=== PATIENT | female | born 1955 | race Caucasian/White ===

== ENCOUNTER 2016-10-10 09:06 | Inpatient (IN) | payer OTHER ==
[2016-10-10] MEDS ORDERED: ACETAMINOPHEN TAB 500 MG TAB PO STA (09:08)
[2016-10-10] MEDS ORDERED: IBUPROFEN 600 MG TAB PO STA (09:08)
[2016-10-10] MEDS ORDERED: SODIUM CHLORIDE 0.9% 500 ML IV STA (09:08)
[2016-10-10] MEDS ORDERED: SODIUM CHLORIDE 0.9% 1,000 ML IV STA (09:08)
[2016-10-10] MEDS ORDERED: SODIUM CHLORIDE 0.9% 1,000 ML IV ONE (09:10)
--- NOTE | 2016-10-10 09:10 | ED ---
General Adult HPI - General Stated complaint: Abd Pain Time Seen by Provider: 10/10/16 09:08 Source: RN notes reviewed, old records reviewed - History of Present Illness Initial comments: This is a 61-year-old female here for evaluation. Patient presents today for evaluation of fever. Patient's transfer patient excepted from [facility] as a postop patient in a postop fever. Patient's medical records were transferred with patient. - Related Data Allergies Allergy/AdvReac Type Severity Reaction Status Date / Time acetaminophen [From [place]] AdvReac Itching Verified 10/10/16 09:13 hydrocodone [From [place]] AdvReac Itching Verified 10/10/16 09:13 Review of Systems ROS Statement: Those systems with pertinent positive or pertinent negative responses have been documented in the HPI. ROS Other: All systems not noted in ROS Statement are negative. General Exam General appearance: alert, in no apparent distress Head exam: Present: atraumatic, normocephalic, normal inspection Eye exam: Present: normal appearance, PERRL, EOMI. Absent: scleral icterus, conjunctival injection, periorbital swelling ENT exam: Present: normal exam, mucous membranes moist Neck exam: Present: normal inspection. Absent: tenderness, meningismus, lymphadenopathy Respiratory exam: Present: normal lung sounds bilaterally. Absent: respiratory distress, wheezes, rales, rhonchi, stridor Cardiovascular Exam: Present: regular rate, normal rhythm, normal heart sounds. Absent: systolic murmur, diastolic murmur, rubs, gallop, clicks GI/Abdominal exam: Present: soft, normal bowel sounds. Absent: distended, tenderness, guarding, rebound, rigid Extremities exam: Present: normal inspection, full ROM, normal capillary refill. Absent: tenderness, pedal edema, joint swelling, calf tenderness Back exam: Present: normal inspection Neurological exam: Present: alert, oriented X3, CN II-XII intact Psychiatric exam: Present: normal affect, normal mood Skin exam: Present: warm, dry, intact, normal color. Absent: rash Course Vital Signs 10/10/16 10/10/16 10/10/16 09:09 10:28 10:36 Temperature 98.1 F Pulse Rate 70 66 66 Respiratory 18 Rate Blood Pressure 144/92 O2 Sat by Pulse 95 Oximetry - Reevaluation(s) Reevaluation #1: 10/10/16 09:10 Transfer paperwork is thoroughly reviewed Reevaluation #2: 10/10/16 10:40 Symptoms are well controlled at this time EKG Findings - EKG Comments: EKG Findings:: EKG shows normal sinus rhythm of 63, DC 142, QRS 104, QTC 440 Medical Decision Making - Medical Decision Making 61 female here for evaluation of fever postop fever - Lab Data Result diagrams: 10/10/16 09:23 10/10/16 09:23 - Radiology Data Radiology results: report reviewed (Outpatient CT of abdomen and pelvis shows no postop abscess, normal postop changes), image reviewed (CT a chest negative for PE, no pneumonia) Disposition Clinical Impression: Postoperative fever Disposition: ADMITTED IP TO THIS HOSP Condition: Fair
[2016-10-10] MEDS ORDERED: PIPERACILLIN-TAZOBACTAM 3.375 GM in DEXTROSE/WATER 1 50ML.BAG IVPB STA (09:19)
[2016-10-10] MEDS ORDERED: RX INFO: IV CONTRAST WAS GIVEN 1 EACH MISC MISCELLANE PRN (09:19)
[2016-10-10] MEDS ORDERED: IPRATROPIUM-ALBUTEROL 3 ML NEB INHALATION PRN (09:19)
[2016-10-10] MEDS ORDERED: ACETAMINOPHEN IV (For NPO) 1,000 MG in EMPTY BAG 1 BAG IVPB STA (09:19)
[2016-10-10] MEDS ORDERED: IPRATROPIUM-ALBUTEROL 3 ML NEB INHALATION STA (09:19)
[2016-10-10] MEDS ORDERED: MORPHINE SULFATE 4 MG/ML SYRINGE IVP STA (09:20)
[2016-10-10] MEDS ORDERED: MORPHINE SULFATE 4 MG/ML SYRINGE IVP PRN (09:20)
[2016-10-10] MEDS ORDERED: ONDANSETRON 4 MG/2 ML VIAL IVP PRN (09:20)
[2016-10-10] MEDS ORDERED: ACETAMINOPHEN TAB 325 MG TAB PO PRN (09:20)
[2016-10-10] MEDS ORDERED: ONDANSETRON 4 MG/2 ML VIAL IVP STA (09:20)
[2016-10-10 09:50] LABS: Basophils % (A) 0 %; CH 29.7; CHCM 33.5; Eosinophils # (A) 0.1 k/uL (0-0.7); Eosinophils % (A) 1 %; HCT 38.9 % (34.0-46.0); HGB 13.3 gm/dL (11.4-16.0); Luc # (Auto) 0.29; Luc % (Auto) 2; Lymphocytes # (A) 1.2 k/uL (1.0-4.8); Lymphocytes % (A) 9 %; MCH 30.6 pg (25.0-35.0); MCHC 34.3 g/dL (31.0-37.0); MCV 89.2 fL (80.0-100.0); Mean Platelet Volume 8.1; Monocytes # (A) 1.4 k/uL (0-1.0); Monocytes % (A) 11 %; Neutrophils # (A) 10.5 k/uL (1.3-7.7); Neutrophils % (A) 78 %; RBC 4.36 m/uL (3.80-5.40); WBC 13.6 k/uL (3.8-10.6); WBC (Perox) 14.16
[2016-10-10 09:59] LABS: ALT 81 U/L (9-52); AST 57 U/L (14-36); Alkaline Phosphatase 170 U/L (38-126); Anion Gap 7 mmol/L; Blood Urea Nitrogen 10 mg/dL (7-17); Calcium 8.5 mg/dL (8.4-10.2); Carbon Dioxide 22 mmol/L (22-30); Chloride 104 mmol/L (98-107); Glucose 89 mg/dL (74-99); Magnesium 1.6 mg/dL (1.6-2.3); Non-African American GFR(MDRD) >60 (>60 ml/min/1.73 sqM); Phosphorous 3.6 mg/dL (2.5-4.5); Sodium 133 mmol/L (137-145); Total Bilirubin 2.1 mg/dL (0.2-1.3); Total Protein 5.7 g/dL (6.3-8.2)
[2016-10-10 10:00] LABS: INR 1.1 (<1.2); Partial Thromboplastin Time 24.3 sec (22.0-30.0); Prothrombin Time 10.7 sec (9.0-12.0)
[2016-10-10 10:18] LABS: Creatine Kinase 69 U/L (30-135)
[2016-10-10 10:31] LABS: Troponin I <0.012 ng/mL (0.000-0.034)
--- NOTE | 2016-10-10 10:34 | CT ---
EXAMINATION TYPE: CT angio chest DATE OF EXAM: 10/10/2016 COMPARISON: NONE HISTORY: SOB, recent cholecystectomy CT DLP: 424.5 mGycm CONTRAST: CT chest with contrast and 3D reconstruction with MIP imaging is performed with IV Contrast, patient injected with 65 mL of Omnipaque 350. Contrast-enhanced CT of the chest was performed through the course of the pulmonary arteries with too g and mediastinal window settings submitted. 3D reconstruction with MIP imaging was also performed. PULMONARY ARTERIES: The pulmonary arteries and their major tributaries are patent. I do not see yolanda dence for sizable filling defect to suggest pulmonary embolic process. LUNGS: There is evidence of basilar atelectasis right greater than left. No evidence for atelectasis. No pulmonary nodule or mass is detected. No pleural effusion. MEDIASTINUM: Thoracic aorta is of normal caliber . The heart is not enlarged. No evidence for media stinal mass. No mediastinal lymph nodes greater than 1cm. HILAR STRUCTURES: No evidence for mass. No hilar lymph nodes greater than 1 cm. UPPER ABDOMEN: No significant abnormality is seen. IMPRESSION: 1. No evidence for Pulmonary embolism at this time. Basilar atelectasis.
[2016-10-10 10:49] LABS: Appearance,Urine Clear (Clear); Bilirubin,Urine Negative (Negative); Glucose,Urine (UA) Negative (Negative); Ketones,Urine Negative (Negative); Leukocyte Esterase,Urine Negative (Negative); Nitrite,Urine Negative (Negative); PH, Urine 5.5 (5.0-8.0); Protein,Urine Negative (Negative); Specific Gravity,Urine 1.017 (1.001-1.035); UA Billing (MACRO vs. MICRO) CHEM; Urobilinogen,Urine <2.0 mg/dL (<2.0)
--- NOTE | 2016-10-10 14:21 | P.HPIM ---
History of Present Illness 61-year-old female came in because of the fever patient checked her temperature at home she is found to have temperature of around 101 f last night patient is postoperative day 4. Patient was transferred here from [facility] was subsequently admitted here. Patient presently denied any fever doesn't didn't have any fever since since admission patient was started on Zosyn. Patient had a CT angios of the chest which ruled out pulmonary embolism. It did show some atelectasis which which probably is responsible for her fever, although there is very limited a bronchogram because of which will discharged on levofloxacin for 5 days. Patient denied any dysuria UA is essentially negative. Review of Systems REVIEW OF SYSTEMS: CONSTITUTIONAL: no malaise, no fatigue. HEENT: No recent visual problems or hearing problems. Denied any sore throat. CARDIOVASCULAR: No chest pain, orthopnea, PND, no palpitations, no syncope. PULMONARY: No shortness of breath, no cough, no hemoptysis. GASTROINTESTINAL: No diarrhea, no nausea, no vomiting, no abdominal pain. Normoactive bowel sounds. NEUROLOGICAL: No headaches, no weakness, no numbness. HEMATOLOGICAL: Denies any bleeding or petechiae. GENITOURINARY: Denies any burning micturition, frequency, or urgency. MUSCULOSKELETAL/RHEUMATOLOGICAL: Denies any joint pain, swelling, or any muscle pain. ENDOCRINE: Denies any polyuria or polydipsia. Past Medical History Past Medical History: Hyperlipidemia, Hypertension History of Any Multi-Drug Resistant Organisms: None Reported Past Surgical History: Cholecystectomy, Hysterectomy, Tubal Ligation Past Psychological History: No Psychological Hx Reported Smoking Status: Current every day smoker Past Alcohol Use History: None Reported Past Drug Use History: None Reported - Past Family History Mother Family Medical History: Chest Pain / Angina, Coronary Artery Disease (CAD), Diabetes Mellitus Medications and Allergies Home Medications Medication Instructions Recorded Confirmed Type Aspirin [Adult Low Dose Aspirin EC] 81 mg PO DAILY 10/10/16 10/10/16 History Lisinopril [Zestril] 40 mg PO DAILY 10/10/16 10/10/16 History Allergies Allergy/AdvReac Type Severity Reaction Status Date / Time acetaminophen [From [place]] AdvReac Itching Verified 10/10/16 12:58 hydrocodone [From [place]] AdvReac Itching Verified 10/10/16 12:58 Physical Exam Vitals: Vital Signs Temp Pulse Pulse Resp BP BP Pulse Ox 10/10/16 13:51 68 19 95 10/10/16 13:04 98.8 F 64 19 115/58 96 10/10/16 10:56 97.4 F L 69 18 108/59 96 10/10/16 10:44 97.5 F L 66 15 139/74 98 10/10/16 10:36 66 10/10/16 10:28 66 10/10/16 09:09 98.1 F 70 18 144/92 95 Intake and Output 10/09/16 10/10/16 10/10/16 22:59 06:59 14:59 Other: # Bowel Movements 1 Weight 113.398 kg Patient Weight 10/11/16 06:59 Weight 113.398 kg PHYSICAL EXAMINATION: GENERAL: The patient is alert and oriented x3, not in any acute distress. Well developed, well nourished. HEENT: Pupils are round and equally reacting to light. EOMI. No scleral icterus. No conjunctival pallor. Normocephalic, atraumatic. No pharyngeal erythema. No thyromegaly. CARDIOVASCULAR: S1 and S2 present. No murmurs, rubs, or gallops. PULMONARY: Chest is clear to auscultation, no wheezing or crackles. ABDOMEN: Soft, nontender, nondistended, normoactive bowel sounds. No palpable organomegaly. MUSCULOSKELETAL: No joint swelling or deformity. EXTREMITIES: No cyanosis, clubbing, or pedal edema. NEUROLOGICAL: Gross neurological examination did not reveal any focal deficits. SKIN: No rashes. Results CBC & Chem 7: 10/10/16 09:23 10/10/16 09:23 Labs: Abnormal Lab Results - Last 24 Hours (Table) 10/10/16 10/10/16 Range/Units 09:23 09:23 WBC 13.6 H (3.8-10.6) k/uL Neutrophils # 10.5 H (1.3-7.7) k/uL Monocytes # 1.4 H (0-1.0) k/uL Sodium 133 L (137-145) mmol/L Total Bilirubin 2.1 H (0.2-1.3) mg/dL AST 57 H (14-36) U/L ALT 81 H (9-52) U/L Alkaline Phosphatase 170 H (38-126) U/L Total Protein 5.7 L (6.3-8.2) g/dL Albumin 3.1 L (3.5-5.0) g/dL Thrombosis Risk Factor Assmnt - Choose All That Apply Each Factor Represents 1 point: Age 41-60 years, Obesity (BMI >25) Each Risk Factor Represents 2 Points: Laparoscopic surgery Thrombosis Risk Factor Assessment Total Risk Factor Score: 4 Thrombosis Risk Factor Assessment Level: Moderate Risk Assessment and Plan Plan: 1 postoperative fever: Probably secondary to atelectasis mostly there is there may be early stages of pneumonia because of which I'm discharging her and levofloxacin. I did review the CT of the chest. Surgical site appears to be clean without any infection. Patient will be counseled regarding incentive spirometry #2 hypertension patient is on lisinopril which she can continue. #3 recent cholecystectomy: We will opt to nondistended abdomen to make sure there is no biliary leak. #4 hyperlipidemia
--- NOTE | 2016-10-10 14:22 | P.DS ---
Providers Date of admission: 10/10/16 09:10 Attending physician: Pradeep Cordero Primary care physician: Eliezer Sheets Hospital Course: Please refer to HPI Patient Condition at Discharge: Fair Plan - Discharge Summary New Discharge Prescriptions: New Levofloxacin [Levaquin] 500 mg PO DAILY #5 tab No Action Lisinopril [Zestril] 40 mg PO DAILY Aspirin [Adult Low Dose Aspirin EC] 81 mg PO DAILY Discharge Medication List Aspirin [Adult Low Dose Aspirin EC] 81 mg PO DAILY 10/10/16 [History] Levofloxacin [Levaquin] 500 mg PO DAILY #5 tab 10/10/16 [Rx] Lisinopril [Zestril] 40 mg PO DAILY 10/10/16 [History] Follow up Appointment(s)/Referral(s): Kathie Thapa FNPBC [REFERRING] - 1-2 days Discharge Disposition: HOME SELF-CARE
--- NOTE | 2016-10-10 15:13 | US ---
EXAMINATION TYPE: US abdomen complete DATE OF EXAM: 10/10/2016 COMPARISON: NONE CLINICAL HISTORY: Post cholecystectomy pain EXAM MEASUREMENTS: Liver Length: 18.6 cm Gallbladder Wall: Surgically absent CBD: 0.3 cm Right Kidney: 15.6 x 4.9 x 5.2 cm Limited due to pt difficulty holding breath. Pancreas: wnl Liver: wnl Gallbladder: Surgically absent Evidence for sonographic Shaver's sign: no CBD: wnl Right Kidney: wnl The liver is homogenous. Common bile duct is unremarkable. The visualized portions of the pancreas are homogenous. Right kidneys is free of hydronephrosis. No renal lesions are seen. IMPRESSION: Negative right upper quadrant abdominal sonogram. Cholecystectomy noted. No dilated ducts.
[2016-10-10] MEDS ORDERED: PIPERACILLIN-TAZOBACTAM 3.375 GM in DEXTROSE/WATER 1 50ML.BAG IVPB SCH (16:00)
[2016-10-10 18:26] VITALS: BP 135/55; PULSE 73; RESP 20; TEMP 98.1
[2016-10-11] MEDS ORDERED: FAMOTIDINE 20 MG/2 ML VIAL IV SCH (09:00)
[2016-10-11] MEDS ORDERED: ENOXAPARIN 40 MG/0.4 ML SYRINGE SQ SCH (09:00)
== END 2016-10-10 17:55 | disposition home or self-care (01) | DRG 864 ==
LOC: EC 09:06 → 6PED 09:10
PROVIDERS: ADMIT Internal Medicine; ATTEND Internal Medicine
DX: R50.82 Postprocedural fever (principal); I10 Essential (primary) hypertension; J98.11 Atelectasis; E78.5 Hyperlipidemia, unspecified; Z90.49 Acquired absence of other specified parts of digestive tract; F17.200 Nicotine dependence, unspecified, uncomplicated; Z79.82 Long term (current) use of aspirin; Z79.899 Other long term (current) drug therapy
CPT/HCPCS: 71275; 76705; 80053; 81003; 82550; 82553; 83605; 83735; 84100; 84484; 85025; 85610; 85730; 87040; 87086; 93005; 96365; 96375; 99285

== ENCOUNTER 2016-10-12 14:27 | Inpatient (IN) | payer OTHER ==
[2016-10-12] MEDS ORDERED: NALOXONE 0.4 MG/ML 1 ML VIAL IV PRN (14:58)
--- NOTE | 2016-10-12 14:58 | ED ---
General Adult HPI - General Chief complaint: Nausea/Vomiting/Diarrhea Stated complaint: N & V Time Seen by Provider: 10/12/16 14:37 Source: patient, EMS Mode of arrival: EMS Limitations: no limitations - History of Present Illness Initial comments: This a 61-year-old female presents emergency department EMS transfer from [place]. Patient had cholecystectomy by Dr. Maravilla. Patient was admitted to days ago here in emergency department transferred from [place] for infection. Patient states she was discharged on antibiotics went home started about the following day. She's had increase abdominal pain. Patient was found to have ileus versus early partial bowel structure on CT. Patient states she was given pain medication Levaquin and Zofran. States she feels improved at this time. Patient was transferred here for further care. - Related Data Home Medications Medication Instructions Recorded Confirmed Aspirin [Adult Low Dose Aspirin EC] 81 mg PO DAILY 10/10/16 10/10/16 Lisinopril [Zestril] 40 mg PO DAILY 10/10/16 10/10/16 Previous Rx's Medication Instructions Recorded Levofloxacin [Levaquin] 500 mg PO DAILY #5 tab 10/10/16 Allergies Allergy/AdvReac Type Severity Reaction Status Date / Time acetaminophen [From [place]] AdvReac Itching Verified 10/10/16 12:58 hydrocodone [From [place]] AdvReac Itching Verified 10/10/16 12:58 Review of Systems ROS Statement: Those systems with pertinent positive or pertinent negative responses have been documented in the HPI. ROS Other: All systems not noted in ROS Statement are negative. Past Medical History Past Medical History: Hyperlipidemia, Hypertension History of Any Multi-Drug Resistant Organisms: None Reported Past Surgical History: Cholecystectomy, Hysterectomy, Tubal Ligation Past Psychological History: No Psychological Hx Reported Smoking Status: Current every day smoker Past Alcohol Use History: None Reported Past Drug Use History: None Reported - Past Family History Mother Family Medical History: Chest Pain / Angina, Coronary Artery Disease (CAD), Diabetes Mellitus General Exam General appearance: alert, in no apparent distress Respiratory exam: Present: normal lung sounds bilaterally. Absent: respiratory distress, wheezes, rales, rhonchi, stridor Cardiovascular Exam: Present: regular rate, normal rhythm, normal heart sounds. Absent: systolic murmur, diastolic murmur, rubs, gallop, clicks GI/Abdominal exam: Present: soft, tenderness (Mild to moderate), normal bowel sounds. Absent: distended, guarding, rebound, rigid Back exam: Absent: CVA tenderness (R), CVA tenderness (L) Course Vital Signs 10/12/16 14:31 Temperature 97.8 F Pulse Rate 66 Respiratory 18 Rate Blood Pressure 140/67 O2 Sat by Pulse 96 Oximetry Disposition Clinical Impression: Ileus, postoperative, Nausea & vomiting Disposition: ADMITTED IP TO THIS [facility] Condition: Good Referrals: None,Stated [Primary Care Provider] - 1-2 days
[2016-10-12] MEDS: SODIUM CHLORIDE 0.9% 1,000 ML IV SCH (15:11)
[2016-10-12] MEDS: ONDANSETRON 4 MG/2 ML VIAL IVP PRN (17:31)
[2016-10-12] MEDS: MORPHINE SULFATE 4 MG/ML SYRINGE IV PRN ×2 (17:31→20:55)
[2016-10-12] MEDS ORDERED: MAG HYDROX/AL HYDROX/SIMETH 30 ML CUP PO PRN ×2 (19:31→20:07)
[2016-10-12] MEDS ORDERED: LEVOFLOXACIN 500 MG TAB PO SCH (21:00)
[2016-10-13] MEDS: SODIUM CHLORIDE 0.9% 1,000 ML IV SCH ×2 (06:24→16:03)
[2016-10-13] MEDS ORDERED: LISINOPRIL 20 MG TAB PO SCH (09:00)
[2016-10-13] MEDS: MORPHINE SULFATE 4 MG/ML SYRINGE IV PRN (09:31)
[2016-10-13] MEDS: ONDANSETRON 4 MG/2 ML VIAL IVP PRN (09:37)
[2016-10-13 13:43] LABS: Basophils % (A) 0 %; CH 29.2; CHCM 32.9; Eosinophils # (A) 0.3 k/uL (0-0.7); Eosinophils % (A) 3 %; HCT 40.9 % (34.0-46.0); HDW 2.68; HGB 13.6 gm/dL (11.4-16.0); Luc # (Auto) 0.27; Luc % (Auto) 3; Lymphocytes # (A) 1.4 k/uL (1.0-4.8); Lymphocytes % (A) 14 %; MCH 29.7 pg (25.0-35.0); MCHC 33.3 g/dL (31.0-37.0); MCV 89.1 fL (80.0-100.0); Mean Platelet Volume 7.7; Monocytes # (A) 0.8 k/uL (0-1.0); Monocytes % (A) 9 %; Neutrophils # (A) 6.8 k/uL (1.3-7.7); Neutrophils % (A) 71 %; RBC 4.58 m/uL (3.80-5.40); RDW 13.3 % (11.5-15.5); WBC 9.6 k/uL (3.8-10.6); WBC (Perox) 9.96
--- NOTE | 2016-10-13 13:52 | XR ---
EXAMINATION TYPE: XR abdomen 2V DATE OF EXAM: 10/13/2016 HISTORY: Pain. Technique: 3 views of the abdomen are submitted. Comparison: None. Findings: There is no convincing evidence of pneumoperitoneum. Distention of small and large bowel with scattered air-fluid levels suggest ileus. Cholecystectomy cl ips are in place. No mass effects are noted. No renal calcifications are identified. IMPRESSION: 1. Distention of small and large bowel with scattered air-fluid levels suggest ileus.
[2016-10-13] MEDS ORDERED: KETOROLAC 30 MG/ML 1 ML VIAL IVP PRN (14:06)
[2016-10-13 14:09] LABS: ALT 50 U/L (9-52); AST 21 U/L (14-36); Alkaline Phosphatase 129 U/L (38-126); Anion Gap 8 mmol/L; Blood Urea Nitrogen 14 mg/dL (7-17); Calcium 8.5 mg/dL (8.4-10.2); Carbon Dioxide 24 mmol/L (22-30); Chloride 108 mmol/L (98-107); Glucose 74 mg/dL (74-99); Non-African American GFR(MDRD) >60 (>60 ml/min/1.73 sqM); Potassium 4.1 mmol/L (3.5-5.1); Sodium 140 mmol/L (137-145); Total Bilirubin 0.7 mg/dL (0.2-1.3)
--- NOTE | 2016-10-13 14:11 | P.HPIM ---
History of Present Illness 61-year-old female sent in from [facility] for possible ileus. Patient was recently discharged from my service. After she was admitted for postoperative fever. Which was considered secondary to atelectasis at that time patient was discharged on levofloxacin for possible early stages of pneumonia. Patient started having nausea vomiting the following day along with a few episodes of diarrhea. Patient did not have any diarrhea here. Patient is still with nauseous and patient bowel sounds are sluggish. Patient's abdomen is distended nontender. Patient appears to have ileus. Patient is not on any narcotic medications at home. Patient is on morphine here which will risk and urine patient was started on ketorolac. Patient denied any fever, chills, dysuria. Patient has minimal diffuse abdominal pain. Patient will be started on proton pump inhibitor and ketorolac instead. And will place an NG tube and see if it drains anything. Patient is on IV fluids at 100 mL/h which will be continued. I'm repeating the chest x-ray and a CBC CMP here. Her electrolytes appear to be within normal limits at the other facility. Patient appears to have postoperative ileus. Surgery was consult and here. It was noted by the surgeon at the other facility that patient had adhesions . Review of Systems REVIEW OF SYSTEMS: CONSTITUTIONAL: No fever, no malaise, no fatigue. HEENT: No recent visual problems or hearing problems. Denied any sore throat. CARDIOVASCULAR: No chest pain, orthopnea, PND, no palpitations, no syncope. PULMONARY: No shortness of breath, no cough, no hemoptysis. GASTROINTESTINAL: As mentioned in HPI NEUROLOGICAL: No headaches, no weakness, no numbness. HEMATOLOGICAL: Denies any bleeding or petechiae. GENITOURINARY: Denies any burning micturition, frequency, or urgency. MUSCULOSKELETAL/RHEUMATOLOGICAL: Denies any joint pain, swelling, or any muscle pain. ENDOCRINE: Denies any polyuria or polydipsia. The rest of the 14-point review of systems is negative. Past Medical History Past Medical History: Hyperlipidemia, Hypertension History of Any Multi-Drug Resistant Organisms: None Reported Past Surgical History: Cholecystectomy, Hysterectomy, Tubal Ligation Past Anesthesia/Blood Transfusion Reactions: No Reported Reaction Smoking Status: Current every day smoker - Past Family History Mother Family Medical History: Chest Pain / Angina, Coronary Artery Disease (CAD), Diabetes Mellitus Medications and Allergies Home Medications Medication Instructions Recorded Confirmed Type Aspirin [Adult Low Dose Aspirin EC] 81 mg PO DAILY 10/10/16 10/12/16 History Lisinopril [Zestril] 40 mg PO DAILY 10/10/16 10/12/16 History Allergies Allergy/AdvReac Type Severity Reaction Status Date / Time acetaminophen [From [place]] AdvReac Itching Verified 10/12/16 14:52 hydrocodone [From [place]] AdvReac Itching Verified 10/12/16 14:52 Physical Exam Vitals: Vital Signs Temp Pulse Pulse Resp BP BP Pulse Ox 10/13/16 12:00 69 18 10/13/16 08:00 97.4 F L 69 18 131/65 94 L 10/13/16 04:00 18 10/13/16 00:00 18 10/12/16 23:35 97.7 F 59 L 18 119/63 95 10/12/16 20:00 16 10/12/16 19:59 97.9 F 64 16 135/60 93 L 10/12/16 15:52 97.6 F 66 18 83/67 97 10/12/16 15:43 97.4 F L 52 L 19 114/56 96 10/12/16 14:31 97.8 F 66 18 140/67 96 Intake and Output 10/12/16 10/13/16 10/13/16 22:59 06:59 14:59 Other: Voiding Method Toilet # Voids 1 Weight 114.4 kg PHYSICAL EXAMINATION: GENERAL: The patient is alert and oriented x3, not in any acute distress. Well developed, well nourished. HEENT: Pupils are round and equally reacting to light. EOMI. No scleral icterus. No conjunctival pallor. Normocephalic, atraumatic. No pharyngeal erythema. No thyromegaly. CARDIOVASCULAR: S1 and S2 present. No murmurs, rubs, or gallops. PULMONARY: Chest is clear to auscultation, no wheezing or crackles. ABDOMEN: Sluggish bowel sounds abdomen is distended nontender. MUSCULOSKELETAL: No joint swelling or deformity. EXTREMITIES: No cyanosis, clubbing, or pedal edema. NEUROLOGICAL: Gross neurological examination did not reveal any focal deficits. SKIN: No rashes. Results CBC & Chem 7: 10/13/16 13:19 Assessment and Plan Plan: #1 possible postoperative ileus: Patient will then be put nothing by mouth IV fluids surgery will be consulted will place an NG tube and see if we get anything. If there is significant of amount of fluid in the stomach patient will be put on intermittent suction. #2 history of adhesions from her previous hysterectomy. And patient had a recent gallbladder surgery. #3 hypertension #4 hyperlipidemia
[2016-10-13 14:32] VITALS: BMI 47.6
[2016-10-13] MEDS: ASPIRIN 81 MG CHEW PO SCH (15:01)
--- NOTE | 2016-10-13 15:50 | P.GSCN ---
History of Present Illness Consult date: 10/13/16 Reason for Consult: Abdominal distention History of present illness: The patient is a 61-year-old white female who is status post laparoscopic cholecystectomy at [place] a proximal malleolar week ago. Following the surgery she was told that she had extensive adhesions. The patient was discharged home immediately following the surgery but returned to the hospital several days later with increasing fevers. At that time she was transferred to [facility] and treated for respiratory infection. She subsequently was discharged home and began having vomiting and diarrhea. She was again seen at [facility] and transferred here secondary to the diarrhea and vomiting. The patient states that the diarrhea stopped but she has continued to have nausea with some vomiting. Her last bowel movement was approximately 2 days ago. She states she is not passing flatus at this time. She denies abdominal pain but complains of abdominal distention. Past surgical history: 1. Hysterectomy tubal ligation 2. Breast biopsy 2 3. Cholecystectomy Past medical history: 1. Hypertension Medications: 1. Lipitor 2. Aspirin. Social history: Smoking: Half a pack per day Alcohol: Negative Marijuana: Negative Cocaine: Negative Pregnancies: 3 Children:. Review of systems: HEENT: Negative Lungs: Asthma/negative COPD Heart: Negative : Hysterectomy/tubal ligation GI: Diarrhea/recent cholecystectomy Review of Systems - Constitutional Reports as per HPI, Reports fever - Cardiovascular Reports as per HPI - Respiratory Reports as per HPI - Gastrointestinal Gastrointestinal Comment(s): Abdominal distention/recent cholecystectomy Reports as per HPI - Genitourinary Genitourinary Comment(s): Status post hysterectomy/tubal ligation - Psychiatric Psychiatric Comment(s): Denies depression or anxiety - Endocrine Endocrine Comment(s): Negative diabetes Past Medical History Past Medical History: Hyperlipidemia, Hypertension History of Any Multi-Drug Resistant Organisms: None Reported Past Surgical History: Cholecystectomy, Hysterectomy, Tubal Ligation Past Anesthesia/Blood Transfusion Reactions: No Reported Reaction Smoking Status: Current every day smoker - Past Family History Mother Family Medical History: Chest Pain / Angina, Coronary Artery Disease (CAD), Diabetes Mellitus Medications and Allergies Home Medications Medication Instructions Recorded Confirmed Type Aspirin [Adult Low Dose Aspirin EC] 81 mg PO DAILY 10/10/16 10/12/16 History Lisinopril [Zestril] 40 mg PO DAILY 10/10/16 10/12/16 History Allergies Allergy/AdvReac Type Severity Reaction Status Date / Time acetaminophen [From [place]] AdvReac Itching Verified 10/12/16 14:52 hydrocodone [From [place]] AdvReac Itching Verified 10/12/16 14:52 Surgical - Exam Vital Signs Temp Pulse Resp BP Pulse Ox 97.8 F 66 18 140/67 96 10/12/16 14:31 10/12/16 14:31 10/12/16 14:31 10/12/16 14:31 10/12/16 14:31 - General obese - Eyes normal ocular movement - Neck no masses, trachea midline, no lymphadectomy - Respiratory normal expansion, normal respiratory effort, clear to auscultation - Cardiovascular Rhythm: regular Heart Sounds: normal: S1, S2 - Abdomen Distended No guarding or rebound Recent fresh incisions no evidence of infection - Neurologic normal coordination - Psychiatric oriented to time, oriented to person, oriented to place, speech is normal Results - Labs 10/13/16 13:19 10/13/16 13:19 Abnormal Lab Results - Last 24 Hours (Table) 10/13/16 Range/Units 13:19 Chloride 108 H (98-107) mmol/L Alkaline Phosphatase 129 H (38-126) U/L Total Protein 5.0 L (6.3-8.2) g/dL Albumin 2.7 L (3.5-5.0) g/dL Diabetes panel 10/13/16 Range/Units 13:19 Sodium 140 (137-145) mmol/L Potassium 4.1 (3.5-5.1) mmol/L Chloride 108 H (98-107) mmol/L Carbon Dioxide 24 (22-30) mmol/L BUN 14 (7-17) mg/dL Creatinine 0.69 (0.52-1.04) mg/dL Glucose 74 (74-99) mg/dL Calcium 8.5 (8.4-10.2) mg/dL AST 21 (14-36) U/L ALT 50 (9-52) U/L Alkaline Phosphatase 129 H (38-126) U/L Total Protein 5.0 L (6.3-8.2) g/dL Albumin 2.7 L (3.5-5.0) g/dL Calcium panel 10/13/16 Range/Units 13:19 Calcium 8.5 (8.4-10.2) mg/dL Albumin 2.7 L (3.5-5.0) g/dL Pituitary panel 10/13/16 Range/Units 13:19 Sodium 140 (137-145) mmol/L Potassium 4.1 (3.5-5.1) mmol/L Chloride 108 H (98-107) mmol/L Carbon Dioxide 24 (22-30) mmol/L BUN 14 (7-17) mg/dL Creatinine 0.69 (0.52-1.04) mg/dL Glucose 74 (74-99) mg/dL Calcium 8.5 (8.4-10.2) mg/dL Adrenal panel 10/13/16 Range/Units 13:19 Sodium 140 (137-145) mmol/L Potassium 4.1 (3.5-5.1) mmol/L Chloride 108 H (98-107) mmol/L Carbon Dioxide 24 (22-30) mmol/L BUN 14 (7-17) mg/dL Creatinine 0.69 (0.52-1.04) mg/dL Glucose 74 (74-99) mg/dL Calcium 8.5 (8.4-10.2) mg/dL Total Bilirubin 0.7 (0.2-1.3) mg/dL AST 21 (14-36) U/L ALT 50 (9-52) U/L Alkaline Phosphatase 129 H (38-126) U/L Total Protein 5.0 L (6.3-8.2) g/dL Albumin 2.7 L (3.5-5.0) g/dL - Imaging Abdominal x-ray: report reviewed Assessment and Plan Plan: Impression/plan: 1. 61-year-old white female status post recent laparoscopic cholecystectomy with vomiting and abdominal distention 2. History of hysterectomy and abdominal adhesions 3. Asthma Plan: 1. Conservative management 2. Would recommend NG tube and follow serial x-rays 3. Patient does not have an acute surgical abdomen at this time Called to assist with replacement of NG tube The need for an NG tube was explained to the patient and her . They agree placement of the NG tube. The NG tube was lubricating jelly. It was placed in the left nares and it was to able be advanced without difficulty. Confirmation of correct placement was obtained by insufflating air and hearing this in the area of the gastric bubble.
[2016-10-13] MEDS: ESOMEPRAZOLE 20 MG in SODIUM CHLORIDE 0.9% 50 ML IVPB SCH (16:03)
[2016-10-13] MEDS ORDERED: LORazepam 2 MG/ML SYRINGE IV PRN (20:12)
[2016-10-13] MEDS ORDERED: HYDROmorphone 1 MG/ML 1 ML SYRINGE IVP PRN (20:14)
--- NOTE | 2016-10-13 20:35 | XR ---
EXAMINATION TYPE: XR abdomen 2V DATE OF EXAM: 10/13/2016 COMPARISON: 10/13/2016 at 1:34 PM HISTORY: pain with suspicion for small bowel obstruction TECHNIQUE: 4V - upright and supine FINDINGS: NG tube is been placed since prior study, with port durables over the stomach. The distended loops of bowel seen on the prior study earlier today are similar on the present study. There is no pneumatosis. No pneumoperitoneum. No new process. IMPRESSION: Stable appearance.
[2016-10-14] MEDS: SODIUM CHLORIDE 0.9% 1,000 ML IV SCH ×2 (02:09→16:56)
[2016-10-14] MEDS: ASPIRIN 81 MG CHEW PO SCH (08:34)
[2016-10-14] MEDS: ESOMEPRAZOLE 20 MG in SODIUM CHLORIDE 0.9% 50 ML IVPB SCH (10:00)
--- NOTE | 2016-10-14 10:05 | P.PN ---
Subjective Patient is a 61-year-old white female who is status post laparoscopic cholecystectomy at [place] approximately a week ago. The patient reportedly had extensive lysis of adhesions at that time. She was admitted to [facility] with a possible early small bowel obstruction versus ileus. The patient had an NG tube placed yesterday. She states this morning she has decreased abdominal distention and began passing flatus and had several bowel movements last night. She states she is feeling much better. Patient's abdominal x-rays from yesterday did show air in the colon. She has not had any repeat x-rays done yet this morning. Objective - Vital Signs Vital signs: Vital Signs Temp 98.3 F 10/14/16 08:00 Pulse 65 10/14/16 08:00 Resp 12 10/14/16 08:00 BP 169/89 10/14/16 08:00 Pulse Ox 98 10/14/16 08:00 Intake & Output 10/13/16 10/14/16 10/14/16 18:59 06:59 18:59 Intake Total 200 Balance 200 Weight 114.4 kg Intake: Intake, IV Titration 200 Amount Sodium Chloride 0.9% 1, 200 000 ml @ 100 mls/hr IV . Q10H [facility] Rx#:[id number] Other: Voiding Method Toilet Toilet # Voids 3 1 1 # Bowel Movements 2 - Constitutional General appearance: Present: obese - Respiratory Details: Decreased breath sounds at the bases - Cardiovascular Rhythm: regular Heart sounds: normal: S1, S2 - Gastrointestinal Gastrointestinal Comment(s): No guarding or rebound Decreased abdominal distention from yesterday General gastrointestinal: Present: decreased bowel sounds, soft - Psychiatric Psychiatric: Present: A&O x's 3, appropriate affect, intact judgment & insight - Labs CBC & Chem 7: 10/13/16 13:19 10/13/16 13:19 Labs: Abnormal Lab Results - Last 24 Hours (Table) 10/13/16 Range/Units 13:19 Chloride 108 H (98-107) mmol/L Alkaline Phosphatase 129 H (38-126) U/L Total Protein 5.0 L (6.3-8.2) g/dL Albumin 2.7 L (3.5-5.0) g/dL - Imaging and Cardiology Abdominal x-ray: report reviewed (X-ray imaging report reviewed from yesterday. Today's x-ray pending), image reviewed Assessment and Plan Plan: Impression/plan: 1. 61-year-old white female status post recent laparoscopic cholecystectomy admitted with vomiting and abdominal distention 2. History of hysterectomy and abdominal adhesions 3. Asthma 4. Decreased abdominal distention, patient started having bowel movements Plan: 1. Conservative management 2. Repeat abdominal x-ray this morning 3. Patient does not have an acute surgical abdomen at this time 4. Probable DC NG tube later today
--- NOTE | 2016-10-14 10:28 | XR ---
EXAMINATION TYPE: 10/13/2016 DATE OF EXAM: 10/14/2016 HISTORY: Pain. Technique: 2 views of the abdomen are submitted. Comparison: None. Findings: There is no convincing evidence of pneumoperitoneum. NG tube is in place. Improved dilatation and air-fluid levels of the small bowel. Small amount of air is seen within the l arge bowel. No mass effects are noted. No renal calcifications are identified. IMPRESSION: 1. Improved dilatation and air-fluid levels of the small bowel. Small amount of air is seen within th e large bowel.
--- NOTE | 2016-10-14 11:57 | P.PN ---
Subjective Patient is admitted for possible postoperative ileus. Patient didn't have any significant NG tube drainage which is Clamped today patient had episode of diarrhea today we are obtaining C. diff testing. If that is negative patient probably can be discharged tomorrow if she is able to tolerate soft diet. Patient NG tube will be removed and patient will be started on clear liquid diet if that is agreeable by surgery. Advance as tolerated. Patient denied any fever, chills, nausea, vomiting, chest pain. Patient had an episode of diarrhea as mentioned above. Objective - Vital Signs Vital signs: Vital Signs Temp 98.3 F 10/14/16 08:00 Pulse 65 10/14/16 08:00 Resp 12 10/14/16 08:00 BP 169/89 10/14/16 08:00 Pulse Ox 98 10/14/16 08:00 Intake & Output 10/13/16 10/14/16 10/14/16 18:59 06:59 18:59 Intake Total 200 Balance 200 Weight 114.4 kg Intake: Intake, IV Titration 200 Amount Sodium Chloride 0.9% 1, 200 000 ml @ 100 mls/hr IV . Q10H [facility] Rx#:[id number] Other: Voiding Method Toilet Toilet # Voids 3 1 1 # Bowel Movements 2 - Exam PHYSICAL EXAMINATION: GENERAL: The patient is alert and oriented x3, not in any acute distress. Well developed, well nourished. HEENT: Pupils are round and equally reacting to light. EOMI. No scleral icterus. No conjunctival pallor. Normocephalic, atraumatic. No pharyngeal erythema. No thyromegaly. CARDIOVASCULAR: S1 and S2 present. No murmurs, rubs, or gallops. PULMONARY: Chest is clear to auscultation, no wheezing or crackles. ABDOMEN: Soft, nontender, nondistended, normoactive bowel sounds. No palpable organomegaly. Patient has an NG tube which is clamped. MUSCULOSKELETAL: No joint swelling or deformity. EXTREMITIES: No cyanosis, clubbing, or pedal edema. NEUROLOGICAL: Gross neurological examination did not reveal any focal deficits. SKIN: No rashes. - Labs CBC & Chem 7: 10/13/16 13:19 10/13/16 13:19 Labs: Abnormal Lab Results - Last 24 Hours (Table) 10/13/16 Range/Units 13:19 Chloride 108 H (98-107) mmol/L Alkaline Phosphatase 129 H (38-126) U/L Total Protein 5.0 L (6.3-8.2) g/dL Albumin 2.7 L (3.5-5.0) g/dL Assessment and Plan Plan: #1 possible postoperative ileus: Patient will then be put nothing by mouth IV fluids surgery evaluated the patient. And patient's NG tube will be removed and advance her diet as mentioned above. We will obtain a C. diff testing for her diarrhea. #2 history of adhesions from her previous hysterectomy. And patient had a recent gallbladder surgery. #3 hypertension #4 hyperlipidemia
[2016-10-15] MEDS: SODIUM CHLORIDE 0.9% 1,000 ML IV SCH ×2 (04:06→07:15)
[2016-10-15] MEDS: ASPIRIN 81 MG CHEW PO SCH (08:12)
[2016-10-15] MEDS: ESOMEPRAZOLE 20 MG in SODIUM CHLORIDE 0.9% 50 ML IVPB SCH (08:12)
--- NOTE | 2016-10-15 14:07 | P.DS ---
Providers Date of admission: 10/13/16 15:20 Attending physician: Donna Elmore Consults: 10/12/16 15:08 Consult Physician Stat Consulting Provider: Holden Gómez Consult Reason/Comments: Postoperative ileus Do you want consulting provider notified?: Yes Primary care physician: Eliezer Sheets Hospital Course: 61-year-old female admitted for possible postoperative ileus. Patient's symptoms improved if patient is able to tolerate soft and patient will be discharged today. Patient had diarrhea C. diff testing was obtained which was negative. And patient was seen in the hospital couple days before this hospitalization. For postoperative fever. At that time patient was thought to have atelectasis on releases of pneumonia because of which patient was started on levofloxacin. I do not believe patient will need any more levofloxacin. Since she had diarrhea and she is high risk for C. diff will discontinue levofloxacin and patient will be discharged home today. And patient can continue her lisinopril at home. PHYSICAL EXAMINATION: GENERAL: The patient is alert and oriented x3, not in any acute distress. Well developed, well nourished. HEENT: Pupils are round and equally reacting to light. EOMI. No scleral icterus. No conjunctival pallor. Normocephalic, atraumatic. No pharyngeal erythema. No thyromegaly. CARDIOVASCULAR: S1 and S2 present. No murmurs, rubs, or gallops. PULMONARY: Chest is clear to auscultation, no wheezing or crackles. ABDOMEN: Soft, nontender, nondistended, normoactive bowel sounds. No palpable organomegaly. MUSCULOSKELETAL: No joint swelling or deformity. EXTREMITIES: No cyanosis, clubbing, or pedal edema. NEUROLOGICAL: Gross neurological examination did not reveal any focal deficits. SKIN: No rashes. Patient Condition at Discharge: Good Plan - Discharge Summary New Discharge Prescriptions: Discontinued Levofloxacin [Levaquin] 500 mg PO DAILY #5 tab No Action Lisinopril [Zestril] 40 mg PO DAILY Aspirin [Adult Low Dose Aspirin EC] 81 mg PO DAILY Discharge Medication List Aspirin [Adult Low Dose Aspirin EC] 81 mg PO DAILY 10/10/16 [History] Lisinopril [Zestril] 40 mg PO DAILY 10/10/16 [History] Follow up Appointment(s)/Referral(s): None,Stated [REFERRING] - 1-2 days Discharge Disposition: HOME SELF-CARE
[2016-10-15 15:05] VITALS: BP 122/70; PULSE 66; RESP 17; TEMP 98
--- NOTE | 2016-10-15 17:42 | P.PN ---
Subjective Principal diagnosis: PSBO Doing well and complains of no nausea no vomiting having bowel movements and passing gas. Objective - Vital Signs Vital signs: Vital Signs Temp 98.0 F 10/15/16 15:00 Pulse 66 10/15/16 15:00 Resp 17 10/15/16 15:00 BP 122/70 10/15/16 15:00 Pulse Ox 96 10/15/16 15:00 Intake & Output 10/14/16 10/15/16 10/15/16 18:59 06:59 18:59 Intake Total 200 1790 850 Balance 200 1790 850 Weight 116 kg Intake: Intake, IV Titration 200 1200 Amount Sodium Chloride 0.9% 1, 200 1200 000 ml @ 100 mls/hr IV . Q10H [facility] Rx#:[id number] Oral 590 850 Other: Voiding Method Toilet # Voids 3 2 2 # Bowel Movements 3 - Gastrointestinal General gastrointestinal: Present: normal bowel sounds, soft. Absent: tenderness - Integumentary Integumentary: Present: cellulitis. Absent: calor - Labs CBC & Chem 7: 10/13/16 13:19 10/13/16 13:19 Assessment and Plan (1) Ileus, postoperative Status: Acute Plan: Is doing well from surgical standpoint she may be discharged once he tolerates an oral diet. She is to follow with her own surgeon.
== END 2016-10-15 19:53 | disposition home or self-care (01) | DRG 395 ==
LOC: EC 14:27 → 3OBS 15:22 → OBSVTOIN 10-13 15:20 → 3SUR 10-13 23:34
PROVIDERS: ADMIT Hospitalist; ATTEND Hospitalist
DX: K91.3 Postprocedural intestinal obstruction (principal); I10 Essential (primary) hypertension; E78.5 Hyperlipidemia, unspecified; Y83.6 Removal of other organ (partial) (total) as the cause of abnormal reaction of the patient, or of later complication, without mention of misadventure at the time of the procedure; Y73.8 Miscellaneous gastroenterology and urology devices associated with adverse incidents, not elsewhere classified; F17.210 Nicotine dependence, cigarettes, uncomplicated; J45.909 Unspecified asthma, uncomplicated; Z79.82 Long term (current) use of aspirin; Z79.899 Other long term (current) drug therapy; Z82.49 Family history of ischemic heart disease and other diseases of the circulatory system; Z83.3 Family history of diabetes mellitus; R11.2 Nausea with vomiting, unspecified
CPT/HCPCS: 74020; 80053; 85025; 87324; 96361; 99285

== ENCOUNTER 2017-09-27 21:36 | Observation (INO) | payer OTHER ==
[2017-09-28 00:20] VITALS: BMI 48.5
[2017-09-28 01:52] LABS: Creatine Kinase 86 U/L (30-135)
[2017-09-28 02:06] LABS: Creatine Kinase MB 0.9 ng/mL (0.0-2.4); Troponin I <0.012 ng/mL (0.000-0.034)
[2017-09-28 07:15] VITALS: RESP 18
[2017-09-28 07:48] LABS: Basophils % (A) 1 %; Eosinophils # (A) 0.2 k/uL (0-0.7); Eosinophils % (A) 3 %; HCT 45.2 % (34.0-46.0); HGB 15.1 gm/dL (11.4-16.0); Lymphocytes # (A) 2.1 k/uL (1.0-4.8); Lymphocytes % (A) 31 %; MCH 29.2 pg (25.0-35.0); MCHC 33.5 g/dL (31.0-37.0); MCV 87.3 fL (80.0-100.0); Mean Platelet Volume 7.3; Monocytes # (A) 0.6 k/uL (0-1.0); Monocytes % (A) 9 %; Neutrophils # (A) 3.8 k/uL (1.3-7.7); Neutrophils % (A) 54 %; Platelet Count 220 k/uL (150-450); RBC 5.18 m/uL (3.80-5.40); RDW 13.4 % (11.5-15.5)
[2017-09-28 07:56] LABS: Anion Gap 11 mmol/L; Blood Urea Nitrogen 15 mg/dL (7-17); Carbon Dioxide 21 mmol/L (22-30); Chloride 110 mmol/L (98-107); Glucose 94 mg/dL (74-99); Potassium 4.6 mmol/L (3.5-5.1); Sodium 142 mmol/L (137-145)
[2017-09-28 08:07] LABS: Creatine Kinase 92 U/L (30-135)
[2017-09-28 08:21] LABS: Creatine Kinase MB 0.8 ng/mL (0.0-2.4); Troponin I <0.012 ng/mL (0.000-0.034)
[2017-09-28 08:30] LABS: Cholesterol 198 mg/dL (<200); HDL Cholesterol 29 mg/dL (40-60); LDL Cholesterol,Calculated 119 mg/dL (0-99); Triglycerides 252 mg/dL (<150)
--- NOTE | 2017-09-28 08:56 | P.CRDCN ---
History of Present Illness History of present illness: Patient interviewed and examined. She complains of skipped beats and palpitations which she feels in her neck and she got scared and therefore came to the hospital. No chest pain. Nonspecific ST-T changes on ECG. Cardiac enzymes are normal, TSH is normal, LDL 119, obese, current smoker This factors for coronary artery disease but last year her Lexiscan stress test was normal. Today her 2-D echo shows preserved LV size and systolic function did she may be discharged home and follow-up with Dr. Perez Smoking cessation and lifestyle modification are imperative Please see full dictation by nurse practitioner Past Medical History Past Medical History: Hyperlipidemia, Hypertension History of Any Multi-Drug Resistant Organisms: None Reported Past Surgical History: Cholecystectomy, Hysterectomy, Tubal Ligation Additional Past Surgical History / Comment(s): carpel tunnel Rt. Past Anesthesia/Blood Transfusion Reactions: No Reported Reaction Past Psychological History: No Psychological Hx Reported Additional Psychological History / Comment(s): pt is independant, lives with . Smoking Status: Current every day smoker Past Alcohol Use History: None Reported Additional Past Alcohol Use History / Comment(s): started smoking 1976-smokes 1/ 2 ppd. Past Drug Use History: None Reported - Past Family History Mother Family Medical History: Chest Pain / Angina, Coronary Artery Disease (CAD), Diabetes Mellitus Medications and Allergies Home Medications Medication Instructions Recorded Confirmed Type Aspirin [Adult Low Dose Aspirin EC] 81 mg PO DAILY 10/10/16 09/28/17 History Lisinopril [Zestril] 40 mg PO DAILY 10/10/16 09/28/17 History Cholecalciferol (Vitamin D3) 2,000 unit PO DAILY 09/28/17 09/28/17 History [Vitamin D3] [place]-3 Fatty Acids/Fish Oil [Fish 1 cap PO DAILY 09/28/17 09/28/17 History Oil 1,000 mg Softgel] Allergies Allergy/AdvReac Type Severity Reaction Status Date / Time hydrocodone [From [place]] AdvReac Itching Verified 09/28/17 07:43 Physical Exam Vitals: Vital Signs Temp Pulse Resp BP Pulse Ox 09/28/17 07:14 97.8 F 62 18 117/60 94 L 09/28/17 03:48 52 L 16 09/28/17 03:24 97.8 F 58 L 16 115/60 97 09/28/17 00:30 97.9 F 59 L 16 161/79 97 09/28/17 00:00 59 L 16 Intake and Output 09/27/17 09/28/17 09/28/17 22:59 06:59 14:59 Intake Total 250 Balance 250 Intake: Oral 250 Other: Voiding Method Toilet # Voids 2 1 Weight 116.573 kg Results 09/28/17 07:16 09/28/17 07:16 Cardiac Enzymes 09/28/17 09/28/17 Range/Units 01:17 07:16 CK-MB (CK-2) 0.9 0.8 (0.0-2.4) ng/mL Troponin I <0.012 <0.012 (0.000-0.034) ng/mL Lipids 09/28/17 Range/Units 07:16 Triglycerides 252 H (<150) mg/dL Cholesterol 198 (<200) mg/dL HDL Cholesterol 29 L (40-60) mg/dL CBC 09/28/17 Range/Units 07:16 WBC 7.0 (3.8-10.6) k/uL RBC 5.18 (3.80-5.40) m/uL Hgb 15.1 (11.4-16.0) gm/dL Hct 45.2 (34.0-46.0) % Plt Count 220 (150-450) k/uL Comprehensive Metabolic Panel 09/28/17 Range/Units 07:16 Sodium 142 (137-145) mmol/L Potassium 4.6 (3.5-5.1) mmol/L Chloride 110 H (98-107) mmol/L Carbon Dioxide 21 L (22-30) mmol/L BUN 15 (7-17) mg/dL Creatinine 0.71 (0.52-1.04) mg/dL Glucose 94 (74-99) mg/dL Calcium 9.0 (8.4-10.2) mg/dL Current Medications Generic Name Dose Route Start Last Admin Trade Name Freq PRN Reason Stop Dose Admin Aspirin 81 mg 09/28/17 09:00 Aspirin PO DAILY ROMA Cholecalciferol 2,000 unit 09/28/17 09:00 Vitamin D3 PO DAILY ROMA Lisinopril 40 mg 09/28/17 09:00 Zestril PO DAILY ROMA Intake and Output 09/27/17 09/28/17 09/28/17 22:59 06:59 14:59 Intake Total 250 Balance 250 Intake: Oral 250 Other: Voiding Method Toilet # Voids 2 1 Weight 116.573 kg 09/28/17 07:16 09/28/17 07:16
[2017-09-28] MEDS ORDERED: CHOLECALCIFEROL 1,000 UNIT TAB PO SCH (09:00)
[2017-09-28] MEDS ORDERED: LISINOPRIL 20 MG TAB PO SCH (09:00)
[2017-09-28] MEDS ORDERED: FISH OIL PO SCH (09:00)
[2017-09-28] MEDS ORDERED: OMEGA PO SCH (09:00)
[2017-09-28] MEDS ORDERED: FATTY ACIDS PO SCH (09:00)
[2017-09-28] MEDS ORDERED: ASPIRIN 81 MG PO SCH (09:00)
--- NOTE | 2017-09-28 10:49 | ECHOF ---
Referral Reason: MEASUREMENTS -------- HEIGHT: 154.9 cm WEIGHT: 116.6 kg BP: 117/60 RVIDd: 3.1 cm (< 3.3) IVSd: 1.0 cm (0.6 - 1.1) LVIDd: 5.1 cm (3.9 - 5.3) LVPWd: 1.1 cm (0.6 - 1.1) IVSs: 1.5 cm LVIDs: 3.4 cm LVPWs: 1.6 cm LA Diam: 3.8 cm (2.7 - 3.8) LAESV Index (A-L): 28.07 ml/m Ao Diam: 2.7 cm (2.0 - 3.7) AV Cusp: 2.1 cm (1.5 - 2.6) MV EXCURSION: 19.783 mm (> 18.000) MV EF SLOPE: 120 mm/s (70 - 150) EPSS: 0.5 cm MV E Abdiel: 1.00 m/s MV DecT: 230 ms MV A Abdiel: 0.71 m/s MV E/A Ratio: 1.41 RAP: 5.00 mmHg RVSP: 27.49 mmHg FINDINGS -------- Resting bradycardia (HR<60bpm). This was a technically good study. The left ventricular size is normal. There is borderline concentric left ventricular hypertrophy. Overall left ventricular systolic function is normal with, an EF between 55 - 60 %. The right ventricle is normal in size. Normal LA size by volume 22+/-6 ml/m2. The right atrium is normal in size. The aortic valve is trileaflet and appears structurally normal. There is trace to mild mitral regurgitation. Mild tricuspid regurgitation present. Right ventricular systolic pressure is normal at < 35 mmHg. Trace/mild (physiologic) pulmonic regurgitation. The aortic root size is normal. Normal inferior vena cava with normal inspiratory collapse consistent with estimated right atrial pre ssure of 5 mmHg. The inferior vena cava is mildly dilated. There is no pericardial effusion. CONCLUSIONS -------- 1. Resting bradycardia (HR<60bpm). 2. This was a technically good study. 3. The left ventricular size is normal. 4. There is borderline concentric left ventricular hypertrophy. 5. Overall left ventricular systolic function is normal with, an EF between 55 - 60 %. 6. The right ventricle is normal in size. 7. Normal LA size by volume 22+/-6 ml/m2. 8. The right atrium is normal in size. 9. The aortic valve is trileaflet and appears structurally normal. 10. There is trace to mild mitral regurgitation. 11. Mild tricuspid regurgitation present. 12. Right ventricular systolic pressure is normal at < 35 mmHg. 13. Trace/mild (physiologic) pulmonic regurgitation. 14. The aortic root size is normal. 15. Normal inferior vena cava with normal inspiratory collapse consistent with estimated right atrial pressure of 5 mmHg. 16. The inferior vena cava is mildly dilated. 17. There is no pericardial effusion. [employer] HANGER ATTACHER: Claudette Leo RDCS
--- NOTE | 2017-09-28 10:53 | P.CRDCN ---
History of Present Illness History of present illness: Mrs. Herman is a pleasant 62-year-old female past medical history significant for hypertension, dyslipidemia, chronic nicotine dependence and obesity. She denies history of coronary artery disease. She follows with Dr. Pisano in the office. She underwent a Lexiscan stress test in 03/2016 which was negative for stress induced cardiac ischemia. Dr. Pisano saw her after her stress test and recommended she undergo an echocardiogram, which she didn't have due to cost. We have been asked to see her in consultation for chest pain. She states since Wednesday she started feeling a full pressure sensation in the chest felt like her heart was pounding up into her neck. She denies actual pain in the chest more of a full feeling in her throat with the palpitations. The discomfort base been persistent since Wednesday with no specific aggravating factors. She denies associated shortness of breath, dizziness, nausea, vomiting or diaphoresis. The discomfort did not radiate to the arms, back, neck or jaw. Since arriving at the hospital her symptoms have subsided. EKG reveals sinus mechanism with non-specific ST abnormalities. Chest xray negative for acute cardiopulmonary process. Laboratory data reviewed, hemoglobin 15.1, platelets 220, sodium 142, potassium 4.6, cardiac enzymes negative x4, LDL 119, triglycerides 252, HDL 29, TSH 1.88. Cardiac risk factors include hypertension, dyslipidemia, family history, chronic nicotine dependence and obesity. Review of Systems At the time of my exam: CONSTITUTIONAL: Denies fever. Denies chills. EYES: Denies blurred vision. Denies vision changes. Denies eye pain. EARS, NOSE, MOUTH & THROAT: Denies headache. Denies sore throat. Denies ear pain. CARDIOVASCULAR: Denies chest pain. Denies shortness of breath. Denies orthopnea. Denies PND. Denies palpitations. RESPIRATORY: Denies cough. GASTROINTESTINAL: Denies abdominal pain. Denies diarrhea. Denies constipation. Denies nausea. Denies vomiting. MUSCULOSKELETAL: Denies myalgias. INTEGUMENTARY: Denies pruitis. Denies rash. NEUROLOGIC: Denies numbness. Denies tingling. Denies weakness. PSYCHIATRIC: Denies anxiety. Denies depression. ENDOCRINE: Denies fatigue. Denies weight change. Denies polydipsia. Denies polyurina. GENITOURINARY: Denies burning, hematuria or urgency with micturation. HEMATOLOGIC: Denies history of anemia. Denies bleeding. Past Medical History Past Medical History: Hyperlipidemia, Hypertension History of Any Multi-Drug Resistant Organisms: None Reported Past Surgical History: Cholecystectomy, Hysterectomy, Tubal Ligation Additional Past Surgical History / Comment(s): carpel tunnel Rt. Past Anesthesia/Blood Transfusion Reactions: No Reported Reaction Past Psychological History: No Psychological Hx Reported Additional Psychological History / Comment(s): pt is independant, lives with . Smoking Status: Current every day smoker Past Alcohol Use History: None Reported Additional Past Alcohol Use History / Comment(s): started smoking 1976-smokes 1/ 2 ppd. Past Drug Use History: None Reported - Past Family History Mother Family Medical History: Chest Pain / Angina, Coronary Artery Disease (CAD), Diabetes Mellitus Medications and Allergies Home Medications Medication Instructions Recorded Confirmed Type Aspirin [Adult Low Dose Aspirin EC] 81 mg PO DAILY 10/10/16 09/28/17 History Lisinopril [Zestril] 40 mg PO DAILY 10/10/16 09/28/17 History Cholecalciferol (Vitamin D3) 2,000 unit PO DAILY 09/28/17 09/28/17 History [Vitamin D3] [place]-3 Fatty Acids/Fish Oil [Fish 1 cap PO DAILY 09/28/17 09/28/17 History Oil 1,000 mg Softgel] Allergies Allergy/AdvReac Type Severity Reaction Status Date / Time hydrocodone [From [place]] AdvReac Itching Verified 09/28/17 07:43 Physical Exam Vitals: Vital Signs Temp Pulse Resp BP Pulse Ox 09/28/17 07:14 97.8 F 62 18 117/60 94 L 09/28/17 03:48 52 L 16 09/28/17 03:24 97.8 F 58 L 16 115/60 97 09/28/17 00:30 97.9 F 59 L 16 161/79 97 09/28/17 00:00 59 L 16 Intake and Output 09/27/17 09/28/17 09/28/17 22:59 06:59 14:59 Intake Total 250 Balance 250 Intake: Oral 250 Other: Voiding Method Toilet # Voids 2 1 Weight 116.573 kg Blood pressure 117/60 heart rate 62 afebrile maintaining oxygen saturation on room air GENERAL: This is a 62-year-old female in no apparent distress at the time of my examination. Obese. HEENT: Head is atraumatic, normocephalic. Pupils are equal, round. Sclerae anicteric. Conjunctivae are clear. Mucous membranes of the mouth are moist. Neck is supple. There is no jugular venous distention. No carotid bruit is heard. LUNGS: Clear to auscultation no wheezes, rales or rhonchi. No chest wall tenderness is noted on palpation or with deep breathing. HEART: Regular rate and rhythm without murmurs, rubs or gallops. S1 and S2 heard. ABDOMEN: Soft, nontender. Bowel sounds are heard. No organomegaly noted. EXTREMITIES: No evidence of peripheral edema and no calf tenderness noted. VASCULAR: Radial and dorsalis pedis pulses palpated, no evidence of clubbing. NEUROLOGIC: Patient is awake, alert and oriented x3. Results 09/28/17 07:16 09/28/17 07:16 Cardiac Enzymes 09/28/17 Range/Units 01:17 CK-MB (CK-2) 0.9 (0.0-2.4) ng/mL Troponin I <0.012 (0.000-0.034) ng/mL CBC 09/28/17 Range/Units 07:16 WBC 7.0 (3.8-10.6) k/uL RBC 5.18 (3.80-5.40) m/uL Hgb 15.1 (11.4-16.0) gm/dL Hct 45.2 (34.0-46.0) % Plt Count 220 (150-450) k/uL Current Medications Generic Name Dose Route Start Last Admin Trade Name Freq PRN Reason Stop Dose Admin Aspirin 81 mg 09/28/17 09:00 Aspirin PO DAILY ROMA Cholecalciferol 2,000 unit 09/28/17 09:00 Vitamin D3 PO DAILY ROMA Lisinopril 40 mg 09/28/17 09:00 Zestril PO DAILY ROMA Intake and Output 09/27/17 09/28/17 09/28/17 22:59 06:59 14:59 Intake Total 250 Balance 250 Intake: Oral 250 Other: Voiding Method Toilet # Voids 2 1 Weight 116.573 kg 09/28/17 07:16 Assessment and Plan Assessment: ASSESSMENT Palpitations with atypical chest discomfort. An acute coronary event has been ruled out. Hypertension, controlled on lisinopril Dyslipidemia, LDL 119 Chronic tobacco use Obesity PLAN TSH checked and it normal. Obtain 2D echocardiogram and doppler study to assess cardiac structure and function. Smoking cessation and lifestyle modifications recommended. Stable from a cardiac perspective, follow up with Dr. Pisano Nurse Practitioner note has been reviewed, I agree with a documented findings and plan of care. Patient was seen and examined.
--- NOTE | 2017-09-28 11:47 | P.HPIM ---
History of Present Illness This is a pleasant 62 years old female with past medical history of hyperlipidemia, hypertension, status post hysterectomy and right carpal tunnel syndrome. Who presents because of chest fluttering 3-4 days, which became more severe yesterday so she came to the emergency room. Patient she can't comment when asked if his continuous or interrupted. Patient denies chest pain, dyspnea , dizziness or lightheadedness. No abdominal pain or discomfort. No change in urine or bowel habit. No fever. No pulmonary signs or symptoms. Patient fluttering sensation is resolved today completely as per patient. Patient states she smokes more than half a pack per day. She was counseled about quitting smoking. Risks including but not limited to cancer and heart disease are explained to the patient. She doesn't want to quit for now because stating she is dealing with her sick father In the ED her WBC is 7K, hemoglobin 15.1 sodium 142 potassium 4.6 creatinine 0.7. TSH 1.8. Cardiology already saw the patient. Echo showing EF 55-60% with borderline LVH. Cardiology team already evaluated the patient and cleared her for discharge Review of Systems CONSTITUTIONAL: No fever, no malaise, no fatigue. HEENT: No recent visual problems or hearing problems. Denied any sore throat. CARDIOVASCULAR: No orthopnea, PND, no palpitations, no syncope. PULMONARY: No shortness of breath, no cough, no hemoptysis. GASTROINTESTINAL: No diarrhea, no nausea, no vomiting, no abdominal pain. Normoactive bowel sounds. NEUROLOGICAL: No headaches, no weakness, no numbness. HEMATOLOGICAL: Denies any bleeding or petechiae. GENITOURINARY: Denies any burning micturition, frequency, or urgency. MUSCULOSKELETAL/RHEUMATOLOGICAL: Denies any joint pain, swelling, or any muscle pain. ENDOCRINE: Denies any polyuria or polydipsia. Past Medical History Past Medical History: Hyperlipidemia, Hypertension History of Any Multi-Drug Resistant Organisms: None Reported Past Surgical History: Cholecystectomy, Hysterectomy, Tubal Ligation Additional Past Surgical History / Comment(s): carpel tunnel Rt. Past Anesthesia/Blood Transfusion Reactions: No Reported Reaction Past Psychological History: No Psychological Hx Reported Additional Psychological History / Comment(s): pt is independant, lives with . Smoking Status: Current every day smoker Past Alcohol Use History: None Reported Additional Past Alcohol Use History / Comment(s): started smoking 1976-smokes 1/ 2 ppd. Past Drug Use History: None Reported - Past Family History Mother Family Medical History: Chest Pain / Angina, Coronary Artery Disease (CAD), Diabetes Mellitus Medications and Allergies Home Medications Medication Instructions Recorded Confirmed Type Aspirin [Adult Low Dose Aspirin EC] 81 mg PO DAILY 10/10/16 09/28/17 History Lisinopril [Zestril] 40 mg PO DAILY 10/10/16 09/28/17 History Cholecalciferol (Vitamin D3) 2,000 unit PO DAILY 09/28/17 09/28/17 History [Vitamin D3] [place]-3 Fatty Acids/Fish Oil [Fish 1 cap PO DAILY 09/28/17 09/28/17 History Oil 1,000 mg Softgel] Allergies Allergy/AdvReac Type Severity Reaction Status Date / Time hydrocodone [From [place]] AdvReac Itching Verified 09/28/17 07:43 Physical Exam Vitals: Vital Signs Temp Pulse Resp BP Pulse Ox 09/28/17 07:20 18 09/28/17 07:14 97.8 F 62 18 117/60 94 L 09/28/17 03:48 52 L 16 09/28/17 03:24 97.8 F 58 L 16 115/60 97 09/28/17 00:30 97.9 F 59 L 16 161/79 97 09/28/17 00:00 59 L 16 Intake and Output 09/27/17 09/28/17 09/28/17 22:59 06:59 14:59 Intake Total 250 Balance 250 Intake: Oral 250 Other: Voiding Method Toilet Toilet # Voids 2 1 Weight 116.573 kg GENERAL: The patient is alert and oriented x3, not in any acute distress. Well developed, well nourished. HEENT: Pupils are round and equally reacting to light. EOMI. No scleral icterus. No conjunctival pallor. Normocephalic, atraumatic. No pharyngeal erythema. No thyromegaly. CARDIOVASCULAR: S1 and S2 present. No murmurs, rubs, or gallops. PULMONARY: Chest is clear to auscultation, no wheezing or crackles. ABDOMEN: Soft, nontender, nondistended, normoactive bowel sounds. No palpable organomegaly. MUSCULOSKELETAL: No joint swelling or deformity. EXTREMITIES: No cyanosis, clubbing, or pedal edema. NEUROLOGICAL: Gross neurological examination did not reveal any focal deficits. SKIN: No rashes. Results CBC & Chem 7: 09/28/17 07:16 09/28/17 07:16 Labs: Abnormal Lab Results - Last 24 Hours (Table) 09/28/17 09/28/17 Range/Units 07:16 07:16 Chloride 110 H (98-107) mmol/L Carbon Dioxide 21 L (22-30) mmol/L Triglycerides 252 H (<150) mg/dL LDL Cholesterol, Calc 119 H (0-99) mg/dL HDL Cholesterol 29 L (40-60) mg/dL Thrombosis Risk Factor Assmnt - Choose All That Apply Each Factor Represents 1 point: Age 41-60 years, Obesity (BMI >25) Thrombosis Risk Factor Assessment Total Risk Factor Score: 2 Thrombosis Risk Factor Assessment Level: Low Risk Assessment and Plan Assessment: -Fluttering sensation in the chest, resolved as per patient -Hypertension -Hyperlipidemia -smoking cigarettes Plan: Patient admitted with chest pain, which is resolved now. Continue same treatment. Continue symptomatic treatment as needed. Patient has been evaluated by cardiology team and cleared for discharge and follow-up as an outpatient.
--- NOTE | 2017-09-28 11:54 | P.DS ---
Providers Date of admission: 09/28/17 00:00 Attending physician: Antwon Carney Consults: 09/28/17 00:49 Consult Physician Routine Consulting Provider: Adam Mills Consult Reason/Comments: palpitations Do you want consulting provider notified?: Yes, Notify in am Placement Type Exists?: Yes Primary care physician: Stated None Hospital Course: This is a pleasant 62 years old female with past medical history of hyperlipidemia, hypertension, status post hysterectomy and right carpal tunnel syndrome. Who presents because of chest fluttering 3-4 days, which became more severe yesterday so she came to the emergency room. Patient she can't comment when asked if his continuous or interrupted. Patient denies chest pain, dyspnea , dizziness or lightheadedness. No abdominal pain or discomfort. No change in urine or bowel habit. No fever. No pulmonary signs or symptoms. Patient fluttering sensation is resolved today completely as per patient. Patient states she smokes more than half a pack per day. She was counseled about quitting smoking. Risks including but not limited to cancer and heart disease are explained to the patient. She doesn't want to quit for now because stating she is dealing with her sick father In the ED her WBC is 7K, hemoglobin 15.1 sodium 142 potassium 4.6 creatinine 0.7. TSH 1.8. Cardiology already saw the patient. Echo showing EF 55-60% with borderline LVH. Cardiology team already evaluated the patient and cleared her for discharge. On the day of discharge patient denies any other symptoms. No chest pain or dyspnea. And her fluttering sensation is completely resolved as per her. Patient is found stable and can be discharged home however she needs follow-up as an outpatient. Patient was informed about her appointment with the cardiology Dr. Perez on of 10/14 at 4 PM, patient and at bedside agreed to the appointment and its timing and stated they try to schedule another one on Wednesday rather than but they keep this one in case the didn't get another appointment. Patient stated she will call her PCP Fran Santiago and make an appointment in 1 week Plan - Discharge Summary Discharge Rx Participant: No New Discharge Prescriptions: No Action Lisinopril [Zestril] 40 mg PO DAILY Aspirin [Adult Low Dose Aspirin EC] 81 mg PO DAILY [place]-3 Fatty Acids/Fish Oil [Fish Oil 1,000 mg Softgel] 1 cap PO DAILY Cholecalciferol (Vitamin D3) [Vitamin D3] 2,000 unit PO DAILY Discharge Medication List Aspirin [Adult Low Dose Aspirin EC] 81 mg PO DAILY 10/10/16 [History] Lisinopril [Zestril] 40 mg PO DAILY 10/10/16 [History] Cholecalciferol (Vitamin D3) [Vitamin D3] 2,000 unit PO DAILY 09/28/17 [History] [place]-3 Fatty Acids/Fish Oil [Fish Oil 1,000 mg Softgel] 1 cap PO DAILY [History] Follow up Appointment(s)/Referral(s): Renny Pisano MD [STAFF PHYSICIAN] - 10/14/17 4:00 pm (Appointment is at [facility]) Patient Instructions/Handouts: Chest Pain (DC), Palpitations (DC)
[2017-09-28 12:02] VITALS: BP 139/78; PULSE 56; TEMP 98
== END 2017-09-28 12:51 | disposition home or self-care (01) ==
LOC: 3OBS 09-28
PROVIDERS: ADMIT Internal Medicine; ATTEND Internal Medicine
DX: R00.2 Palpitations (principal); R07.89 Other chest pain; E78.5 Hyperlipidemia, unspecified; I10 Essential (primary) hypertension; F17.210 Nicotine dependence, cigarettes, uncomplicated; E66.9 Obesity, unspecified; Z68.42 Body mass index [BMI] 45.0-49.9, adult; Z82.49 Family history of ischemic heart disease and other diseases of the circulatory system; Z83.3 Family history of diabetes mellitus; Z79.82 Long term (current) use of aspirin; Z79.899 Other long term (current) drug therapy; Z88.5 Allergy status to narcotic agent; Z90.49 Acquired absence of other specified parts of digestive tract; I49.8 Other specified cardiac arrhythmias
CPT/HCPCS: 93306; 80061; 80048; 84443; 82550; 82553; 84484; 85025; G0378; G0379